=== PATIENT | male | born 1980 | race Caucasian/White ===

== ENCOUNTER 2018-04-30 16:13 | Emergency (ER) | payer BC ==
[~2018-04-30] VITALS: Ht 175.3 cm; Wt 87.0 kg
[2018-04-30 16:16] VITALS: BP 126/89
== END 2018-04-30 22:40 | disposition left against medical advice (07) ==
LOC: ER 16:13
DX: Z53.21 Procedure and treatment not carried out due to patient leaving prior to being seen by health care provider (principal)
CPT/HCPCS: 93005